=== PATIENT | female | born 1980 | race Two or more races ===

== ENCOUNTER → 2024-08-17 | Day surgery (SDC) | payer BC ==
[~2024-08-17] VITALS: Ht 157.5 cm; Wt 67.1 kg
[~2024-08-17] MED LIST: AMLO1TAB22 PO; ATOR10TA52 PO; DexAMETHasone SOD PHOS 10MG/1ML VIAL INJ ONE; HYDR12.59 PO; HYDROmorphone HCL 2 MG/ML VL/or syr IV PRN; KETOROLAC TROMETH 30 MG/ML 1ML VIAL IV ONE; MEPERIDINE HCL (25 MG/ML) 1ML VIAL ONE; MIDAZOLAM HCL 2MG/2ML 2ml VIAL (1mg/ml) IV PRN; MIDAZOLAM HCL 2MG/2ML 2ml VIAL (1mg/ml) ONE; MORPHINE SULFATE 4 MG/ML SYR/VIAL IV PRN; ONDANSETRON HCL 4 MG/2 ML VIAL IV ONE; PROPOFOL 10 MG/ML 20 ML IV ONE; TRAM50TA2 PO; ceFAZolin 2 GM/D5W100ml 100 ML IV ONE; ePHEDrine SULFATE 50 MG/ML AMP IV PRN; fentaNYL CITRATE 100 MCG/2 ML VL ONE; hydrALAZINE HCL 20 MG/ML VL IV PRN
[2024-08-17 10:26] VITALS: PULSE 96; RESP 12; TEMP 97.8; O2SAT 99
[2024-08-17 10:45] VITALS: BP 122/78; PULSE 92; RESP 14; O2SAT 99
== END | disposition home or self-care (01) ==
LOC: SUR 08:51
PROVIDERS: ATTEND Orthopaedic Surgery Sports Medicine
DX: G56.01 Carpal tunnel syndrome, right upper limb (principal); I10 Essential (primary) hypertension; Z90.49 Acquired absence of other specified parts of digestive tract; E78.00 Pure hypercholesterolemia, unspecified; Z98.891 History of uterine scar from previous surgery; Z79.899 Other long term (current) drug therapy
CPT/HCPCS: 64721; J1100; J2175; J2250; J2704; J3010

== ENCOUNTER → 2024-12-21 | Day surgery (SDC) | payer BC, OTHER ==
[~2024-12-21] VITALS: Ht 157.5 cm; Wt 67.1 kg
[~2024-12-21] MED LIST changes: +ACETAMINOPHEN IV 1000 MG/100ML (10MG/ML) IV PRN; +BUPIVACAINE HCL 0.25% P/F 10 ML VIAL ONE; -KETOROLAC TROMETH 30 MG/ML 1ML VIAL IV ONE; +MEPERIDINE HCL (25 MG/ML) 1ML VIAL IV PRN; -MIDAZOLAM HCL 2MG/2ML 2ml VIAL (1mg/ml) IV PRN; -MIDAZOLAM HCL 2MG/2ML 2ml VIAL (1mg/ml) ONE; -MORPHINE SULFATE 4 MG/ML SYR/VIAL IV PRN; -ONDANSETRON HCL 4 MG/2 ML VIAL IV ONE; +ONDANSETRON HCL 4 MG/2 ML VIAL ONE; -ceFAZolin 2 GM/D5W100ml 100 ML IV ONE; -ePHEDrine SULFATE 50 MG/ML AMP IV PRN; -hydrALAZINE HCL 20 MG/ML VL IV PRN
[2024-12-21] MEDS: BUPIVACAINE 0.5% P/F INJ 10 ML VIAL ONE (09:27)
[2024-12-21 09:34] VITALS: TEMP 97.7; O2SAT 96
--- NOTE | 2024-12-21 09:57 | DVHOP2 ---
Operative Report - 2 Report Details Date: 12/21/24 Preop Diagnosis: Left wrist carpal tunnel syndrome Postop Diagnosis: Left wrist carpal tunnel syndrome Surgeon: Juan Child MD Publisher Assistant: JAVIER Tristan Anesthesiologist: Dr Wilson Anesthesia: Mac, Local Implant: None Consent: The patient was informed of the risks and benefits of the procedure. These include but are not limited to complications of anesthesia, postoperative infection, incomplete relief of symptoms, recurrence of symptoms, damage to blood vessels, nerves and tendons, deep venous thrombosis, pulmonary embolism and possible need for repeat surgery in the future. Complications: None Estimated Blood Loss: Less than 10 mL Indications for Surgery: The patient is a 44-year-old female who presented to the clinic with a history of carpal tunnel syndrome. Clinical and EMG evaluation confirmed the diagnosis. Nonoperative and operative management options were discussed. Surgery in the form of carpal tunnel release was discussed and recommended. Benefits, risks and treatment alternatives were discussed. Specific complications of the surgery such as neurovascular injury, infection, arthrofibrosis, loss of limb or life were discussed. The patient decided to proceed with the surgical option. Name of Procedure Performed Left open carpal tunnel release with median nerve neurolysis Procedure Details Procedure Details: Local anesthesia was injected in the proposed site. An incision was made based on anatomical landmarks in line of third interdigital webspace. The skin and the subcutaneous tissue were dissected. The deep fascia was incised. Care was taken to stay on the ulnar side of the incision. The fat was dissected. The palmar fascia was identified and dissected. The transverse carpal ligament was now identified. No variants of median nerve branches such as the recurrent branch was noted. The dissection was completed proximally and distally to ensure safety of incising the retinaculum. A 15 blade was used to start the release. Next tenotomy scissors were used to dissect under the retinaculum. Median nerve was identified before the incision was carried out further. Next the tenotomy scissors were inserted right around the retinaculum with a [place] elevator inserted below it to release it distally as well as proximally. Excellent release was noted and confirmed with a hemostat that was inserted and spread both proximally and distally. The nerve was noted to be intact and was carefully released without any undue tension and dissection. Irrigation was given and the incision was closed with 3-0 nylon Condition Good Disposition Home JUAN CHILD MDb 4, 2025 09:57
[2024-12-21 10:19] VITALS: BP 132/83; PULSE 78; RESP 17; O2SAT 95
[2024-12-21] MEDS: ONDANSETRON HCL 4 MG/2 ML VIAL IV ONE (10:32)
== END | disposition home or self-care (01) ==
LOC: SUR 06:07
PROVIDERS: ATTEND Orthopaedic Surgery Sports Medicine
DX: G56.02 Carpal tunnel syndrome, left upper limb (principal); I10 Essential (primary) hypertension; E78.5 Hyperlipidemia, unspecified; Z98.891 History of uterine scar from previous surgery; Z98.890 Other specified postprocedural states; Z79.899 Other long term (current) drug therapy; Z82.49 Family history of ischemic heart disease and other diseases of the circulatory system; Z90.49 Acquired absence of other specified parts of digestive tract
CPT/HCPCS: 64721; J1100; J2175; J2405; J2704; J3010; J3490